=== PATIENT | female | born 1995 | race African-American/Black ===

== ENCOUNTER 2016-12-25 13:29 | Emergency (ER) | payer MEDICAID ==
[~2016-12-25] VITALS: Ht 154.9 cm; Wt 48.0 kg
[2016-12-25 13:36] VITALS: BP 106/66
== END 2016-12-25 15:50 | disposition home or self-care (01) ==
LOC: ER 13:30
DX: S40.011A Contusion of right shoulder, initial encounter (principal); S20.211A Contusion of right front wall of thorax, initial encounter; F12.10 Cannabis abuse, uncomplicated; W19.XXXA Unspecified fall, initial encounter; Y93.89 Activity, other specified; Y99.8 Other external cause status; Y92.89 Other specified places as the place of occurrence of the external cause
CPT/HCPCS: 71020; 73030; 81025; 99284

== ENCOUNTER 2017-09-09 19:30 | Emergency (ER) | payer MEDICAID ==
[~2017-09-09] VITALS: Ht 154.9 cm; Wt 50.5 kg
[2017-09-10 03:52] LABS: CLARITY URINE CLOUDY (CLEAR); COLOR URINE YELLOW (YELLOW); KETONES URINE TRACE (NEGATIVE); LEUKOCYTE ESTERASE URINE 2+ (NEGATIVE); NITRITE URINE NEGATIVE (NEGATIVE); OCCULT BLOOD URINE 2+ (NEGATIVE); PROTEIN URINE NEGATIVE (NEGATIVE)
[2017-09-10] MEDS ORDERED: CEFTRIAXONE SODIUM 1 G/VIAL IM ONE (04:45)
[2017-09-10] MEDS ORDERED: PHENAZOPYRIDINE HCL 100MG TABLET PO ONE (04:45)
[2017-09-10 05:22] VITALS: BP 133/72
== END 2017-09-10 05:33 | disposition home or self-care (01) ==
LOC: ER 21:40
DX: N39.0 Urinary tract infection, site not specified (principal); F12.10 Cannabis abuse, uncomplicated
CPT/HCPCS: 81003; 81025; 87086; 96372; 99284; J0696